=== PATIENT | male | born 1960 ===

== ENCOUNTER 2017-12-28 11:55 | Emergency (ER) | payer MEDICAID, OTHER ==
[2017-12-28 11:55] VITALS: BMI 31.8
--- NOTE | 2017-12-28 12:40 | ED PDOC ---
HPI: General Adult Time Seen by Provider: 12/28/17 12:19 Chief Complaint (Nursing): ENT Problem Chief Complaint (Provider): ENT Problem History Per: Patient History/Exam Limitations: no limitations Onset/Duration Of Symptoms: Days (x2) Current Symptoms Are (Timing): Still Present Additional Complaint(s): 57 year old male presents for evaluation of 2 days of fever with ear pain and throat pain. He states he took two doses of unknown antibiotics from [place] country without relief. Of note, patient was found febrile in triage with a temperature of 101.3 orally. Otherwise: (-) cough, (-) SOB, (-) chest pain, (-) N/V/D, (-) abdominal pain, (-) neck pain, (-) urinary symptoms, (-) recent travel, (-) sick contacts. PMD: [place] Past Medical History Reviewed: Historical Data, Nursing Documentation, Vital Signs Vital Signs: Last Vital Signs Temp 99.9 F H 12/28/17 14:04 Pulse 88 12/28/17 14:04 Resp 16 12/28/17 14:04 BP 129/81 12/28/17 14:04 Pulse Ox 100 12/30/17 18:06 - Medical History PMH: HTN - Surgical History Surgical History: No Surg Hx - Family History Family History: States: Unknown Family Hx - Social History Current smoker - smoking cessation education provided: No Alcohol: None Drugs: Denies - Home Medications Home Medications: Ambulatory Orders Medication Instructions Recorded Acetaminophen [Acetaminophen 8 650 mg PO Q8 PRN #21 tablet.er 12/28/17 Hour] Amoxicillin 875 mg PO BID #14 tablet 12/28/17 Ibuprofen [Motrin Tab] 600 mg PO Q6 PRN #24 tab 12/28/17 - Allergies Allergies/Adverse Reactions: Allergies Allergy/AdvReac Type Severity Reaction Status Date / Time No Known Allergies Allergy Verified 12/28/17 12:12 Review of Systems ROS Statement: Except As Marked, All Systems Reviewed And Found Negative Constitutional: Positive for: Fever ENT: Positive for: Ear Pain, Throat Pain Cardiovascular: Negative for: Chest Pain Respiratory: Negative for: Cough, Shortness of Breath Gastrointestinal: Negative for: Nausea, Vomiting, Abdominal Pain, Diarrhea Genitourinary Male: Negative for: Dysuria, Frequency Musculoskeletal: Negative for: Neck Pain Physical Exam - Reviewed Nursing Documentation Reviewed: Yes Vital Signs Reviewed: Yes - Physical Exam Comments: GENERAL APPEARANCE: Patient is awake, alert, oriented x 3, in no acute distress. Nontoxic appearing, resting comfortably. SKIN: Warm, dry; (-) cyanosis, (-) rash. EYES: (-) conjunctival pallor, (-) scleral icterus, (-) conjunctival hemorrhage. EOMI and painless. (-) periorbital tenderness, erythema, or swelling. ENMT: Mucous membranes are moist. Right TM: (+) erythema, (+) bulging. Left TM : unremarkable. Airway patent: (-) stridor. Pharynx: (+) erythema, (-) exudate, (-) hypertrophy. Uvula midline. (-) sinus tenderness. LUNGS: Clear to auscultation bilaterally (-) rales (-) rhonchi (-) wheezing. Respirations even and unlabored. NECK: Supple, FROM (-) tenderness, (-) stiffness, (-) meningismus, (+) anterior cervical lymphadenopathy. ABDOMEN AND GI: Soft; (-) tenderness, (-) guarding; (-) mass; (-) CVA tenderness. NEURO AND PSYCH: Mental status as above; (-) focal findings. Gait steady, speech clear. (-) facial asymmetry - ECG O2 Sat by Pulse Oximetry: 100 (RA) Pulse Ox Interpretation: Normal Medical Decision Making Medical Decision Making: Time: 12:26 Initial Impression: fever, otitis media, pharyngitis Initial Plan: --Amoxicillin 500 mg PO --Ibuprofen 600 mg PO --Tylenol 650 mg PO --Throat culture --Rapid strep 1330 Repeat Temp Oral: 99.9 Repeat HR: 88 Rapid Strep: Negative On re-evaluation, patient reports improvement of symptoms. On exam, patient remains AAOx3, in no acute distress. On exam, neck is supple, lungs CTA, cardiac RRR, abdomen is soft and non-tender, neuro exam shows no focal findings. VSS, stable for discharge. Diagnostic results d/w the patient in great detail. Dx of otitis media, pharyngitis, fever d/w the patient. Based on history, exam and diagnostic results plan will be for discharge and outpatient follow up with PMD. Advised to follow up with primary care physician in 1-2 days without fail. Advised to take medication as prescribed. Return to the emergency room at any time for any new or worsening symptoms. Patient states he fully agrees with and understands discharge instructions. States that he agrees with the plan and disposition. Verbalized and repeated discharge instructions and plan. I have given the patient opportunity to ask any additional questions. Scribe Attestation: Documented by Willa Payton, acting as a scribe for Tammy Nino PA-C. Provider Scribe Attestation: All medical record entries made by the Scribe were at my direction and personally dictated by me. I have reviewed the chart and agree that the record accurately reflects my personal performance of the history, physical exam, medical decision making, and the department course for this patient. I have also personally directed, reviewed, and agree with the discharge instructions and disposition. Disposition - Clinical Impression Clinical Impression: Otitis media, Pharyngitis, Fever - Patient ED Disposition Is Patient to be Admitted: No Counseled Patient/Family Regarding: Studies Performed, Diagnosis, Need For Followup, Rx Given - Disposition Referrals: Satinder Soria MD [Family Provider] - Disposition: Routine/Home Disposition Time: 13:30 Condition: IMPROVED Additional Instructions: FOLLOW UP WITH PMD IN 1-2 DAYS WITHOUT FAIL. RETURN TO ED WITH ANY NEW OR WORSENING SYMPTOMS. MANAGE FEVER WITH TYLENOL AND MOTRIN. TAKE ANTIBIOTICS UNTIL COMPLETE. Prescriptions: Acetaminophen [Acetaminophen 8 Hour] 650 mg PO Q8 PRN #21 tablet.er PRN Reason: Fever >100.4 F Amoxicillin 875 mg PO BID #14 tablet Ibuprofen [Motrin Tab] 600 mg PO Q6 PRN #24 tab PRN Reason: PAIN, FEVER Instructions: Ear Infections (Otitis Media), Sore Throat in Adults, Fever, Adult (DC), When to Worry About a Fever Forms: [employer] [place] ([place]) Print Language: CITIZEN OF [place] - POA Present On Arrival: None Results - Lab Results Lab Results: 12/28/17 12:35 Grp A Beta Strep Ag Negative
[2017-12-28 14:05] VITALS: BP 129/81; PULSE 88; RESP 16; TEMP 99.9
[2017-12-30 18:05] VITALS: O2SAT 100
== END 2017-12-28 14:05 | disposition home or self-care (01) ==
LOC: H.ER 11:55
DX: H92.09 Otalgia, unspecified ear (principal); R50.9 Fever, unspecified; J02.9 Acute pharyngitis, unspecified; I10 Essential (primary) hypertension